=== PATIENT | male | born 1990 | race Two or more races ===

== ENCOUNTER 2017-07-06 16:25 | Emergency (ER) | payer SELFPAY ==
[~2017-07-06] VITALS: Ht 185.4 cm; Wt 108.0 kg
[2017-07-06] MEDS ORDERED: cefTRIAXone 1GM/50ML D5W 50 ML IV ONE (18:45)
[2017-07-06] MEDS ORDERED: SODIUM CHLORIDE 0.9% 1,000 ML IV ONE (18:45)
[2017-07-06] MEDS ORDERED: TETANUS-DIPTH-ACEL PERTUSSIS 0.5ML SYRG IM ONE (19:00)
[2017-07-06] MEDS ORDERED: LIDOCAINE 1% HCL (LOCAL ANESTH.) INJ 20ML MDV ONE (19:41)
[2017-07-06] MEDS ORDERED: KETOROLAC TROMETH 30 MG/ML 1ML VIAL IV ONE (20:45)
[2017-07-06 21:24] VITALS: BP 121/68
== END 2017-07-06 21:21 | disposition home or self-care (01) ==
LOC: ER 16:35
DX: S92.321A Displaced fracture of second metatarsal bone, right foot, initial encounter for closed fracture (principal); S92.331A Displaced fracture of third metatarsal bone, right foot, initial encounter for closed fracture; S92.351A Displaced fracture of fifth metatarsal bone, right foot, initial encounter for closed fracture; S91.311A Laceration without foreign body, right foot, initial encounter; V89.1XXA Person injured in unspecified nonmotor-vehicle accident, nontraffic, initial encounter; Y93.55 Activity, bike riding; Y92.89 Other specified places as the place of occurrence of the external cause; Y99.8 Other external cause status
CPT/HCPCS: 12002; 29515; 73630; 90471; 90715; 96365; 96375; 99284; J0696; J1885; J2001